=== PATIENT | female | born 1960 | race Caucasian/White ===

== ENCOUNTER 2024-09-24 12:51 | Day surgery (SDC) | payer BC ==
[~2024-09-24] VITALS: Ht 165.1 cm; Wt 86.6 kg
[~2024-09-24 12:51] MED LIST: ACETAMINOPHEN 1000MG/100ML IV BAG As Ordered ONE; KETOROLAC 30 MG/ML 1 ML VIAL As Ordered ONE; LEVOTAB10 PO; LIDOCAINE 2% 100 MG/5 ML SDV (FOR ANES.) As Ordered ONE; LOVA40TA PO; MIDAZOLAM INJ 2 MG/2 ML VIAL As Ordered ONE; OMEP40CA4 PO; ONDANSETRON 4MG 2ML VIAL As Ordered ONE; ROCURONIUM BROMIDE 50MG/5ML VIAL As Ordered ONE; SUGAMMADEX SODIUM 500 MG/5 ML VIAL As Ordered ONE; dexAMETHasone 4 MG/ML 1 ML VIAL As Ordered ONE
[2024-09-24] MEDS: LR 1,000 ML IV SCH (13:25)
[2024-09-24] MEDS: ceFAZolin SOD 2 GM IV ONCE IV ONE (14:05)
[2024-09-24] MEDS: HEPARIN SOD 5000 UNITS/ML 1 ML VIAL/SYRINGE SQ ONE (14:10)
[2024-09-24] MEDS ORDERED: hydrALAZINE 20 MG/ML 1 ML VIAL As Ordered ONE (14:33)
[2024-09-24] MEDS ORDERED: HYDROmorphone HCL 2 MG/ML 1 ML VIAL As Ordered ONE (14:38)
[2024-09-24] MEDS ORDERED: LR 1,000 ML IV SCH (15:45)
[2024-09-24] MEDS: HYDROMORPHONE HCL 0.5 MG/0.5 ML SYRINGE IV PRN (16:13)
[2024-09-24] MEDS: ONDANSETRON 4MG 2ML VIAL IV PRN (16:38)
[2024-09-24 17:40] VITALS: BP 146/80; TEMP 97; O2SAT 95
== END 2024-09-24 18:13 | disposition home or self-care (01) ==
LOC: M SDC 12:51
PROVIDERS: ATTEND Surgery
DX: K43.2 Incisional hernia without obstruction or gangrene (principal); E78.00 Pure hypercholesterolemia, unspecified; G47.30 Sleep apnea, unspecified; Z79.899 Other long term (current) drug therapy; F17.210 Nicotine dependence, cigarettes, uncomplicated; Z90.89 Acquired absence of other organs
CPT/HCPCS: 49593; C1781; J0131; J0360; J0665; J0690; J1100; J1171; J1885; J2250; J2405; J3010; S2900